=== PATIENT | female | born 1985 | race Caucasian/White ===

== ENCOUNTER 2022-08-07 09:58 | Emergency (ER) | payer MEDICARE ==
[2022-08-07] MEDS ORDERED: methylPREDNISolone Sodium Succinate 125 MG/2 ML SDV IM ONE (11:18)
== END 2022-08-07 12:11 | disposition home or self-care (01) ==
LOC: MW.ED 09:58
DX: L55.1 Sunburn of second degree (principal); Z91.09 Other allergy status, other than to drugs and biological substances
CPT/HCPCS: 96372; 99282; J2930; 99283